=== PATIENT | female | born 1990 | race Caucasian/White ===

== ENCOUNTER 2022-03-22 17:54 | Emergency (ER) | payer SELFPAY ==
[~2022-03-22] VITALS: Ht 167.6 cm; Wt 77.0 kg
[2022-03-22 21:27] LABS: BASOPHILS % 0.6 % (0.0-2.0); EOSINOPHILS % 1.5 % (0.0-5.0); HEMATOCRIT. 41.8 % (36.0-48.0); HEMOGLOBIN. 14.2 g/dL (12.0-16.0); LYMPHOCYTES % 32.1 % (20.0-50.0); MEAN CORPUSCULAR HEMOGLOBIN 31.6 pg (28.0-32.0); MEAN CORPUSCULAR VOLUME 92.8 fL (81.0-99.0); MEAN PLATELET VOLUME 8.1 fl (7.4-10.4); MONOCYTES % 5.7 % (2.0-8.0); NEUTROPHILS % 60.1 % (40.0-76.0); PLATELET 308 x1000/uL (130-400); RED CELL DISTRIBUTION WIDTH 12.9 % (11.6-14.6)
[2022-03-22 21:40] LABS: CHLORIDE 106 mEq/L (98-107)
[2022-03-22 21:44] LABS: HCG SCREEN NEGATIVE
[2022-03-23 00:13] LABS: CLARITY URINE CLOUDY (CLEAR); COLOR URINE YELLOW (YELLOW); KETONES URINE TRACE (NEGATIVE); LEUKOCYTE ESTERASE URINE 2+ (NEGATIVE); NITRITE URINE NEGATIVE (NEGATIVE); OCCULT BLOOD URINE 2+ (NEGATIVE); PH URINE 5.5 (4.5-8.0); PROTEIN URINE TRACE (NEGATIVE); SPECIFIC GRAVITY URINE 1.024 (1.005-1.030)
[2022-03-23] MEDS ORDERED: IBUP-2029 MT (00:34)
[2022-03-23] MEDS ORDERED: CEPH500C2 MT (00:34)
[2022-03-23 00:36] VITALS: BP 114/78
== END 2022-03-23 00:44 | disposition home or self-care (01) ==
LOC: EDBD 17:54 → ER 17:54
DX: N30.90 Cystitis, unspecified without hematuria (principal)
CPT/HCPCS: 36415; 80053; 81003; 81025; 84703; 85025; 99283